=== PATIENT | female | born 2000 | race Caucasian/White ===

== ENCOUNTER 2022-02-14 09:34 | Emergency (ER) | payer SELFPAY ==
[2022-02-14 10:18] LABS: Urine Blood Negative (Negative); Urine Glucose Negative (Negative); Urine Protein Negative (Negative); Urine Specific Gravity >=1.030 (1.005-1.030)
--- NOTE | 2022-02-14 11:21 | ER ---
Nurse's Notes [facility] Name: Khang Del Valle Age: 21 yrs Sex: Female : 2000 Arrival Date: 02/14/2022 Time: 09:37 Bed 12 Private MD: Diagnosis: Breast pain Presentation: 02/14 10:02 Chief complaint: Patient states: she has been having breast pain since Monday ap3 02/11/2022. Patient states her breasts are tender to the touch, denies breast feeding or any recent infection. Coronavirus screen: At this time, the client does not indicate any symptoms associated with coronavirus-19. Ebola Screen: No symptoms or risks identified at this time. Risk Assessment: Do you want to hurt yourself or someone else? Patient reports no desire to harm self or others. Onset of symptoms was February 11, 2022. 10:02 Method Of Arrival: Ambulatory ap3 10:02 Acuity: AIDE 4 ap3 11:31 Initial Sepsis Screen: Does the patient meet any 2 criteria? No. Patient's initial ss sepsis screen is negative. Does the patient have a suspected source of infection? No. Patient's initial sepsis screen is negative. Triage Assessment: 10:04 General: Appears in no apparent distress. Behavior is calm, cooperative, appropriate ap3 for age. Pain: Complains of pain in right breast and left breast. Neuro: Level of Consciousness is awake, alert, obeys commands, Oriented to person, place, time, situation, Appropriate for age Moves all extremities. Gait is steady, Speech is normal. Cardiovascular: Patient's skin is warm and dry. Respiratory: Airway is patent Respiratory effort is even, unlabored, Respiratory pattern is regular, symmetrical. Historical: - Allergies: 10:04 No Known Allergies; ap3 - Home Meds: 10:04 Hydroxyzine Oral for anxiety [Active]; ap3 - PMHx: 10:04 Anxiety; ap3 - Immunization history:: Client reports receiving the 2nd dose of the Covid vaccine. - Social history:: Smoking status: Patient denies any tobacco usage or history of. Screenin:05 Abuse screen: Denies threats or abuse. Nutritional screening: No deficits noted. ap3 Tuberculosis screening: No symptoms or risk factors identified. Fall Risk None identified. Assessment: 11:29 Reassessment: Patient appears in no apparent distress at this time. Patient and/or ss family updated on plan of care and expected duration. Pain level reassessed. Patient is alert, oriented x 3, equal unlabored respirations, skin warm/dry/pink. Vital Signs: 11:32 BP 97 / 77; Pulse 67; Temp 98.8; Pulse Ox 100% ; ss ED Course: 09:37 Patient arrived in ED. as 09:40 Theod[facility]C [facility]. kb 09:41 Valentino Ayala MD is Attending Physician. kb 10:04 Triage completed. ap3 10:05 Patient has correct armband on for positive identification. Bed in low position. Call ap3 light in reach. Adult w/ patient. 10:05 Arm band placed on right wrist. ap3 11:12 Azalea Ferguson, RN is Primary Nurse. ss 11:29 No provider procedures requiring assistance completed. Patient did not have IV access ss during this emergency room visit. Administered Medications: No medications were administered Medication: 10:06 VIS not applicable for this client. ap3 Outcome: 11:21 Discharge ordered by . kb 11:29 Discharged to home ambulatory. ss 11:29 Condition: good 11:29 Discharge instructions given to patient, Instructed on discharge instructions, follow up and referral plans. Demonstrated understanding of instructions, follow-up care. 11:34 Patient left the ED. ss Signatures: Theodora Rodriguez FNP-C FNP-Eli See as Azalea Ferguson, IRLANDA RN ss Dayanara Garcia RN RN ap3
--- NOTE | 2022-02-14 11:21 | EDPHYS ---
Physician Documentation [facility] Name: Khang Del Valle Age: 21 yrs Sex: Female : 2000 Arrival Date: 02/14/2022 Time: 09:37 Bed 12 Private MD: ED Physician Valentino Ayala HPI: 02/14 11:33 This 21 yrs old Female presents to ER via Ambulatory with complaints of Breast Problem kb - pain/swelling. 11:33 Pt reports bilateral breast pain and tenderness since Monday. States she just switched kb from depo to control pills. . Onset: The symptoms/episode began/occurred 4 day(s) ago. Severity of symptoms: At their worst the symptoms were moderate in the emergency department the symptoms are unchanged. The patient has not experienced similar symptoms in the past. The patient has not recently seen a physician. Historical: - Allergies: 10:04 No Known Allergies; ap3 - Home Meds: 10:04 Hydroxyzine Oral for anxiety [Active]; ap3 - PMHx: 10:04 Anxiety; ap3 - Immunization history:: Client reports receiving the 2nd dose of the Covid vaccine. - Social history:: Smoking status: Patient denies any tobacco usage or history of. ROS: 11:31 Constitutional: Negative for fever, chills, and weight loss. kb 11:31 Cardiovascular: Positive for breast pain and tenderness bilaterally. 11:31 All other systems are negative. Exam: 11:31 Constitutional: This is a well developed, well nourished patient who is awake, alert, kb and in no acute distress. Head/Face: Normocephalic, atraumatic. ENT: Moist Mucous membranes Cardiovascular: Regular rate and rhythm with a normal S1 and S2. No gallops, murmurs, or rubs. No pulse deficits. Respiratory: Respirations even and unlabored. No increased work of breathing. Talking in full sentences Skin: Warm, dry with normal turgor. Normal color. MS/ Extremity: Pulses equal, no cyanosis. Neurovascular intact. Full, normal range of motion. Neuro: Awake and alert, GCS 15, oriented to person, place, time, and situation. Moves all extremities. Normal gait. Psych: Awake, alert, with orientation to person, place and time. Behavior, mood, and affect are within normal limits. 11:31 Chest/axilla: Breasts: abscess, not appreciated, cellulitis, is not appreciated, nipple discharge, is not appreciated, rash, is not appreciated, swelling, is not appreciated, tenderness, that is mild in both breasts. Vital Signs: 11:32 BP 97 / 77; Pulse 67; Temp 98.8; Pulse Ox 100% ; ss MDM: 09:59 Patient medically screened. kb 11:31 Data reviewed: vital signs, nurses notes. Data interpreted: Pulse oximetry: on room air kb is 100 %. Interpretation: normal. Counseling: I had a detailed discussion with the patient and/or guardian regarding: the historical points, exam findings, and any diagnostic results supporting the discharge/admit diagnosis, lab results, the need for outpatient follow up, an OB/Gyne specialist, to return to the emergency department if symptoms worsen or persist or if there are any questions or concerns that arise at home. 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 I agree with assessment [id number] and care plan and confirm the diagnosis (es) above. Attestation: The patient's history, exam findings, diagnostics, and a summary of any interventions or procedures was reviewed in detail with Theodora SALAZAR. Disposition Summary: 02/14/22 11:21 Discharge Ordered Location: Home kb Condition: Stable kb Diagnosis - Breast pain kb Followup: kb - With: Emergency Department - When: As needed - Reason: Worsening of condition Followup: kb - With: Private Physician - When: 2 - 3 days - Reason: Recheck today's complaints, Continuance of care, Re-evaluation by your physician Discharge Instructions: - Discharge Summary Sheet kb - Breast Tenderness kb Forms: - Medication Reconciliation Form kb - Thank You Letter kb - Antibiotic Education kb - Prescription Opioid Use kb Signatures: Theodora Rodriguez FNP-C FNP-Dayanara Rubio RN RN ap3 Lucy, Valentino, MD MD jr11
[2022-02-14 11:41] VITALS: BP 97/77; TEMP 98.8; O2SAT 100
== END 2022-02-14 11:34 | disposition home or self-care (01) ==
LOC: ER 09:34
DX: N64.4 Mastodynia (principal); F41.9 Anxiety disorder, unspecified
CPT/HCPCS: 81003; 99281

== ENCOUNTER → 2023-06-16 | Emergency (ER) | payer BC ==
[~2023-06-16] MED LIST: DICYCLOMINE HCL 10 MG CAP ONE; ONDANSETRON 4 MG (ODT) TAB ONE
[2023-06-16 01:18] LABS: Specific Gravity > 1.030 (1.005-1.030); Urine Bacteria <20 /HPF (<20); Urine Bilirubin NEGATIVE (Negative); Urine Blood Negative (Negative); Urine Clarity Clear (Clear); Urine Color Yellow (Yellow); Urine Glucose NEGATIVE (Negative); Urine Mucus Slight /HPF (None Seen); Urine Protein TRACE (Negative); Urine Urobilinogen 2+ (Normal); Urine pH 6.5 (5.0-7.0)
[2023-06-16 01:19] LABS: Specific Gravity > 1.030 (1.005-1.030)
--- NOTE | 2023-06-16 01:43 | ER ---
Nurse's Notes [facility] Name: Khang Del Valle Age: 23 yrs Sex: Female : 2000 Arrival Date: 06/16/2023 Time: 00:36 Bed 20 Private MD: Diagnosis: Irritable bowel syndrome without diarrhea Presentation: 06/16 00:43 Chief complaint: Patient states: intermittent lower abdominal cramping pain, onset pf1 night with constipation for 4 days. Patient stated LBM was tonight with hard to soft stool. Patient stated history of IBS. Patient denies any pain at this time. 00:43 Coronavirus screen: Vaccine status: Patient reports receiving the 2nd dose of the covid pf1 vaccine. [employer] Client denies travel out of the [place] in the last 14 days. At this time, the client does not indicate any symptoms associated with coronavirus-19. Ebola Screen: Patient negative for fever greater than or equal to 101.5 degrees Fahrenheit, and additional compatible Ebola Virus Disease symptoms. Initial Sepsis Screen: Does the patient meet any 2 criteria? HR > 90 bpm. No. Patient's initial sepsis screen is negative. Does the patient have a suspected source of infection? No. Patient's initial sepsis screen is negative. Risk Assessment: Do you want to hurt yourself or someone else? Patient reports no desire to harm self or others. 00:43 Method Of Arrival: Ambulatory pf1 00:43 Acuity: AIDE 3 pf1 Historical: - Allergies: 00:55 No Known Allergies; pf1 - PMHx: 00:55 Anxiety; Depressive disorder; pf1 00:56 IBS; pf1 - PSHx: 00:55 None; pf1 - Immunization history:: Adult Immunizations up to date, Client reports receiving the 2nd dose of the Covid vaccine, [employer] Last tetanus immunization: < 5 years ago Flu vaccine is not up to date. - Social history:: Smoking status: Patient denies any tobacco usage or history of. Patient/guardian denies using alcohol, street drugs. - Family history:: not pertinent. Screenin:56 [facility] ED Fall Risk Assessment (Adult) History of falling in the last 3 months, pf1 including since admission No falls in past 3 months (0 pts) Confusion or Disorientation No (0 pts) Intoxicated or Sedated No (0 pts) Impaired Gait No (0 pts) Mobility Assist Device Used No (0 pt) Altered Elimination No (0 pt) Score/Fall Risk Level 0 - 2 = Low Risk Oriented to surroundings, Maintained a safe environment, Educated pt \T\ family on fall prevention, incl call for assistance when getting out of bed, Assessed \T\ reinforced patient's understanding of fall precautions, Provided non-skid footwear, Hourly rounding (assess needs \T\ fall precautionary measures) done, Used ambulatory aids as needed (educated on \T\ assisted with), Used gait belt as appropriate. Abuse screen: Denies threats or abuse. Nutritional screening: No deficits noted. Tuberculosis screening: No symptoms or risk factors identified. Assessment: 01:02 General: Appears in no apparent distress. comfortable, Behavior is calm, cooperative. lg3 Pain: Complains of pain in right lower quadrant and left lower quadrant Pain does not radiate. Quality of pain is described as crampy. Neuro: No deficits noted. Olguin Agitation-Sedation Scale (RASS): 0 - Alert and Calm Level of Consciousness is awake, alert, obeys commands, Oriented to person, place, time, situation. Cardiovascular: No deficits noted. Denies chest pain, shortness of breath, Capillary refill < 3 seconds Clubbing of nail beds is absent JVD is absent Patient's skin is warm and dry. Respiratory: No deficits noted. Airway is patent Respiratory effort is even, unlabored, Respiratory pattern is regular, symmetrical. GI: No deficits noted. Abdomen is round non-distended, Reports lower abdominal pain, cramping. : No deficits noted. No signs and/or symptoms were reported regarding the genitourinary system. Urine is clear. EENT: No deficits noted. No signs and/or symptoms were reported regarding the EENT system. Derm: No deficits noted. No signs and/or symptoms reported regarding the dermatologic system. Skin is intact, is healthy with good turgor, Skin is dry, Skin is normal, Skin temperature is warm. Musculoskeletal: No deficits noted. No signs and/or symptoms reported regarding the musculoskeletal system. Circulation, motion, and sensation intact. Range of motion: intact in all extremities. 01:48 Reassessment: Patient appears in no apparent distress at this time. No changes from lg3 previously documented assessment. Patient and/or family updated on plan of care and expected duration. Pain level reassessed. Patient is alert, oriented x 3, equal unlabored respirations, skin warm/dry/pink. Vital Signs: 00:43 BP 130 / 87; Pulse 94; Resp 16; Temp 98.1; Pulse Ox 100% ; Weight 74.84 kg; Height 5 pf1 ft. 0 in. ; Pain 0/10; 01:48 BP 127 / 88; Pulse 91; Resp 17 S; Pulse Ox 100% on R/A; lg3 00:43 Body Mass Index 32.22 (74.84 kg, 152.4 cm) pf1 00:43 Pain Scale: Adult pf1 ED Course: 00:39 Patient arrived in ED. kj1 00:40 Jovani Khan MD is Attending Physician. rt 00:55 Triage completed. pf1 00:57 Arm band placed on right wrist. pf1 01:02 Patient has correct armband on for positive identification. Placed in gown. Bed in low lg3 position. Call light in reach. Side rails up X 1. Client placed on continuous cardiac and pulse oximetry monitoring. NIBP monitoring applied. Door closed. Noise minimized. Warm blanket given. 01:02 Patient maintains SpO2 saturation greater than 95% on room air. lg3 01:12 PREGU Sent. lg3 01:12 UAM Sent. lg3 01:42 Alexis Guallpa MD is Referral Physician. rt 01:48 No provider procedures requiring assistance completed. Patient did not have IV access lg3 during this emergency room visit. Administered Medications: 01:12 Drug: Dicyclomine PO 20 mg PO once Route: PO; lg3 01:48 Follow up: Response: No adverse reaction lg3 01:12 Drug: Ondansetron Oral Disintegrating Tablet Oral Disintegrating Tablet 4 mg PO once lg3 Route: PO; 01:48 Follow up: Response: No adverse reaction lg3 Medication: 01:50 VIS not applicable for this client. lg3 Outcome: 01:43 Discharge ordered by . rt 01:48 Discharged to home ambulatory, lg3 01:48 Condition: stable 01:48 Discharge instructions given to patient, Instructed on discharge instructions, follow up and referral plans. medication usage, Demonstrated understanding of instructions, follow-up care, medications, Prescriptions given X 2, 01:50 Patient left the ED. lg3 Signatures: Anna Marie Rodriguez kj1 Elin Khalil, RN RN lg3 Jovani Khan MD MD rt Erika Page, IRLANDA RN pf1
--- NOTE | 2023-06-16 01:43 | EDPHYS ---
Physician Documentation [facility] Name: Khang Del Valle Age: 23 yrs Sex: Female : 2000 Arrival Date: 06/16/2023 Time: 00:36 Bed 20 Private MD: ED Physician Jovani Khan HPI: 06/16 01:16 This 23 yrs old Female presents to ER via Ambulatory with complaints of IBS FLARE UP. rt 01:16 Patient with history of IBS presents to the ED with lower abdominal pain, improving. rt She states that she often will alternate between having diarrhea and constipation. Reports constipation for the past few days, however, today did have an improving bowel movement. Is currently taking stool softeners, fiber supplementation. States that the pain is somewhat improved as well. Denies other acute complaints at this time, symptoms are mild in severity, no other aggravating or elevating factors.. Historical: - Allergies: 00:55 No Known Allergies; pf1 - PMHx: 00:55 Anxiety; Depressive disorder; pf1 00:56 IBS; pf1 - PSHx: 00:55 None; pf1 - Immunization history:: Adult Immunizations up to date, Client reports receiving the 2nd dose of the Covid vaccine, [employer] Last tetanus immunization: < 5 years ago Flu vaccine is not up to date. - Social history:: Smoking status: Patient denies any tobacco usage or history of. Patient/guardian denies using alcohol, street drugs. - Family history:: not pertinent. ROS: 01:16 Constitutional: Negative for fever, chills, and weight loss, Cardiovascular: Negative rt for chest pain, palpitations, and edema, Respiratory: Negative for shortness of breath, cough, wheezing, and pleuritic chest pain, MS/Extremity: Negative for injury and deformity, Skin: Negative for injury, rash, and discoloration, Neuro: Negative for headache, weakness, numbness, tingling, and seizure, Psych: Negative for depression, anxiety, suicide ideation, homicidal ideation, and hallucinations, 01:16 Abdomen/GI: Positive for abdominal pain, Negative for vomiting, Exam: 01:16 Constitutional: This is a well developed, well nourished patient who is awake, alert, rt and in no acute distress. Head/Face: Normocephalic, atraumatic. Chest/axilla: Normal chest wall appearance and motion. Nontender with no deformity. No lesions are appreciated. Cardiovascular: Regular rate and rhythm with a normal S1 and S2. No gallops, murmurs, or rubs. Normal PMI, no JVD. No pulse deficits. Respiratory: Lungs have equal breath sounds bilaterally, clear to auscultation and percussion. No rales, rhonchi or wheezes noted. No increased work of breathing, no retractions or nasal flaring. Skin: Warm, dry with normal turgor. Normal color with no rashes, no lesions, and no evidence of cellulitis. MS/ Extremity: Pulses equal, no cyanosis. Neurovascular intact. Full, normal range of motion. Neuro: Awake and alert, GCS 15, oriented to person, place, time, and situation. Cranial nerves II-XII grossly intact. Motor strength 5/5 in all extremities. Sensory grossly intact. Cerebellar exam normal. Normal gait. Psych: Awake, alert, with orientation to person, place and time. Behavior, mood, and affect are within normal limits. 01:16 Abdomen/GI: Minimal tenderness to the suprapubic region, no focal right lower quadrant tenderness, no guarding, rebound, distention., Vital Signs: 00:43 BP 130 / 87; Pulse 94; Resp 16; Temp 98.1; Pulse Ox 100% ; Weight 74.84 kg; Height 5 pf1 ft. 0 in. ; Pain 0/10; 01:48 BP 127 / 88; Pulse 91; Resp 17 S; Pulse Ox 100% on R/A; lg3 00:43 Body Mass Index 32.22 (74.84 kg, 152.4 cm) pf1 00:43 Pain Scale: Adult pf1 MDM: 00:54 Patient medically screened. rt 02:03 Differential Diagnosis IBS, UTI,. Data reviewed: vital signs, nurses notes, lab test rt result(s). I considered the following discharge prescriptions or medication management in the emergency department Medications were administered in the Emergency Department. See MAR. Test considered but Not performed: Labs: Offered patient labs, states that she does not wish to have any labs done at this time, will return for worsening symptoms to readdress need for further workup.. CT: Benign abdominal examination, CT scan not indicated. Care significantly affected by the following chronic conditions: IBS. Counseling: I had a detailed discussion with the patient and/or guardian regarding the historical points, exam findings, and any diagnostic results supporting the discharge/admit diagnosis, lab results, the need for outpatient follow up. 06/16 01:02 Order name: MIKE; Complete Time: 01:20 rt 02 01:02 Order name: ALEJA; Complete Time: 01:20 rt Administered Medications: 01:12 Drug: Dicyclomine PO 20 mg PO once Route: PO; lg3 01:48 Follow up: Response: No adverse reaction lg3 01:12 Drug: Ondansetron Oral Disintegrating Tablet Oral Disintegrating Tablet 4 mg PO once lg3 Route: PO; 01:48 Follow up: Response: No adverse reaction lg3 Disposition Summary: 06/16/23 01:43 Discharge Ordered Notes: Location: Home rt Problem: an ongoing problem rt Symptoms: have improved rt Condition: Stable rt Diagnosis - Irritable bowel syndrome without diarrhea rt Followup: rt - With: Alexis Guallpa MD - When: 5 - 6 days - Reason: Discharge Instructions: - Discharge Summary Sheet rt - Diet for Irritable Bowel Syndrome rt - Irritable Bowel Syndrome, Adult rt Forms: - Medication Reconciliation Form rt - Thank You Letter rt - Antibiotic Education rt - Prescription Opioid Use rt - Patient Portal Instructions rt - Leadership Thank You Letter rt Prescriptions: - ondansetron 4 mg Oral Tablet,disintegrating - take 1 tablet ORAL route every 6 hours as needed for nausea; 18 tablet; rt Refills: 0, Product Selection Permitted - dicyclomine 10 mg Oral capsule - take 1 capsule ORAL route 3 times per day as needed for abdominal pain; 15 rt capsule; Refills: 0, Product Selection Permitted Signatures: Dispatcher [employer] EDElin Benavidez, RN RN lg3 Jovani Khan MD MD rt Erika Page RN RN pf1
[2023-06-16 02:43] VITALS: BP 127/88; TEMP 98.1; O2SAT 100
== END ==
LOC: ER 00:36
DX: K58.9 Irritable bowel syndrome, unspecified (principal)
CPT/HCPCS: 81001; 81025; Q0162